=== PATIENT | male | born 1995 | race Hispanic/Latino ===

== ENCOUNTER 2020-08-08 13:41 | Emergency (ER) | payer SELFPAY ==
[~2020-08-08] VITALS: Ht 200.7 cm; Wt 95.3 kg
[2020-08-08] MEDS ORDERED: TETANUS/DIPHTHERIA TOX ADULT 0.5 ML SYR IM ONE (14:00)
[2020-08-08] MEDS ORDERED: TETANUS/DIPHTHERIA TOX ADULT 0.5 ML SYR ONE (14:09)
[2020-08-08] MEDS ORDERED: AUGMENTIN 875-1 EACH PO (14:27)
[2020-08-08] MEDS ORDERED: HYDROCODONE/APAP 5MG-325MG TAB PO ONE (14:30)
[2020-08-08] MEDS ORDERED: BACITRACIN ZINC 0.9GM TP ONE (14:47)
== END 2020-08-08 15:51 | disposition home or self-care (01) ==
LOC: ER 14:01
DX: S61.451A Open bite of right hand, initial encounter (principal); Z23 Encounter for immunization; W54.0XXA Bitten by dog, initial encounter; Y92.830 Public park as the place of occurrence of the external cause; Y99.8 Other external cause status
CPT/HCPCS: 90471; 90714; 99282